=== PATIENT | female | born 1940 | race Caucasian/White ===

== ENCOUNTER 2016-07-17 02:07 | Inpatient (IN) | payer OTHER, MEDICARE ==
[~2016-07-17] VITALS: Ht 157.5 cm; Wt 57.6 kg
[~2016-07-17 02:07] MED LIST: AMOX-CLAV 250-1 EACH PO; ASPIR 8181 MG PO; BENTYL20 M1 PO; CALCIUM ACETAT667 M3 PO; CIPRO500 M1 PO; CRANBERRY425 MG PO; FOLEY CATHETER1 EAC1 UR; K-TAB ER20 MEQ PO; NORVASC 10MG10 MG PO; NYSTATIN100000 UNI PO; OMEPRAZOLE20 M2 PO; PERCOCET 325 MG1 TA2 PO; POTASSIUM CHLO20 ME2 PO; RENVELA800 M1 PO; SLOW-MAG71.5 MG PO; SODIUM BICARBO325 M1 PO; SPIRIVA18 MCG INH; SYMBICORT 80-10.2 GM INH; VANCOCIN HCL125 MG PO; VITAMIN D2000 UNIT PO; VITAMIN D32000 I1 PO; ZOFRAN4 M2 PO
--- NOTE | 2016-07-17 12:43 | Admission Core Measures ---
Admission Meds I reviewed the following Meds: Current Medications Sig/Deena Start time Last Medication Dose Stop Time Status Admin Amlodipine Besylate 10 MG DAILY 07/18 1000 UNVr (Norvasc) Ampicillin Sodium/ 3,000 MG ONCE 07/17 0000 NR Sulbactam Sodium 07/17 2359 (Unasyn) Sodium Chloride 100 ML (Normal Saline 0.9%) Budesonide/ 2 PUF BID 07/17 2200 UNVr Formoterol Fumarate (SYMBICORT) Tiotropium [place] 1 PUF DAILY 07/18 1000 UNVr (Spiriva) Acute Coronary Syndrome Inclusion Criteria ACS Diagnosis No Inpatient Core Measures LDL Reminder: If No, please order W/I first 24hr of stay Congestive Heart Failure Inclusion Criteria CHF Diagnosis No Cerebrovascular accident Inclusion Criteria CVA/TIA Diagnosis No Inpatient Core Measures Bedside Swallow Eval Reminder: If BSE failed, place ST order Antithrombotic Reminder: Order Antithrombotic Medication by end of day 2 Antithrombotic Reminder: Document Reason Antithrombotic Not ordered by end of day 2 AFIB/Flutter Reminder: If Present, add to problem list AFIB/Flutter Reminder: Order Anticoag Medication for pts with AFIB/Flutter Atherosclerosis Reminder: If Present, add to problem list LDL Reminder: If No, please order W/I first 24hr of stay PT Order Reminder: If No, please order Venous thromboembolism Inpatient Core Measures VTE Risk Factors: Age > 40, Surgery VTE Prophylaxis Ordered Inpt Mech & Pharm No Mech VTE prophylaxis d/t No contraindications No VTE Pharm Prophylaxis d/t No contraindications Inclusion Criteria - Per Current guidelines, there needs to be overlap - treatment for the first 5 days of Warfarin therapy. - Parenteral Anticoagulation (IV or SC) needs to be - given along with Warfarin therapy. VTE Diagnosis No VTE Type NONE VTE Confirmed by (Test) NONE Problem List As ranked by this Provider includes Assessment & Plan 1. S/P colostomy takedown HOME MEDS Home Med List Amlodipine (Norvasc 10MG) 10 MG TAB 1 TAB PO DAILY BP (Reported) Aspirin (Ecotrin) 81 MG ECT 1 TAB PO DAILY HEART (Reported) Budesonide/Formoterol Fumarate (Symbicort 80-4.5 Mcg Inhaler) (Unknown Strength) HFA.AER.AD 2 PUFF INH DAILY COPD (Reported) Tiotropium [place] (Spiriva) 18 MCG CAP.W.DEV 1 CAP INH DAILY breathing ( Reported)
--- NOTE | 2016-07-17 12:47 | Patient Discharge Instructions ---
Discharge Instructions General Discharge Information You were seen/treated for: STATUS POST COLOSTOMY You had these procedures: OPEN COLOSTOMY REVERSAL Watch for these problems: INCREASING ABDOMINAL PAIN, NAUSEA, VOMITTING. INABILITY TO MOVE BOWELS OR PASS GAS. FEVER GREATER THAN 101.5 DEGREES. Call Surgeon to remove: Duy Do not soak the wound: Yes Daily wet to dry dressings: No Other wound care: DAILY DRY DRESSING CHANGES Diet Continue normal diet: Yes Recommended Diet: Low Residue Additional DIET Information: ADVANCE TOLERATED Activity Full Activity/No Limits: No Activity Self Limited: Yes Pounds, do NOT lift more than: 10 Acute Coronary Syndrome Inclusion Criteria At DC or during hospital stay patient has or had the following: ACS DIAGNOSIS No Discharge Core Measures Meds if any: Prescribed or Continued at Discharge Meds if any: NOT Prescribed or Continued at Discharge Congestive Heart Failure Inclusion Criteria At DC or during hospital stay patient has or had the following: CHF DIAGNOSIS No Discharge Core Measures Meds if any: Prescribed or Continued at Discharge Meds if any: NOT Prescribed or Continued at Discharge Cerebrovascular accident Inclusion Criteria At DC or during hospital stay patient has or had the following: CVA/TIA Diagnosis No Discharge Core Measures Meds if any: Prescribed or Continued at Discharge Meds if any: NOT Prescribed or Continued at Discharge Venous thromboembolism Inclusion Criteria VTE Diagnosis No VTE Type NONE VTE Confirmed by (Test) NONE Discharge Core Measures - Per Current guidelines, there needs to be overlap - treatment for the first 5 days of Warfarin therapy. - If discharged on Warfarin prior to 5 days of - overlap therapy, the patient will need to be - assessed for post discharge needs including - *Post discharge parental anticoagulation - *Warfarin and/or parental anticoagulation education - *Follow up date to check INR post discharge At least 5 days overlap therapy as Inpatient No Meds if any: Prescribed or Continued at Discharge Note: Overlap Therapy is Warfarin and Anticoagulant Meds if any: NOT Prescribed or Continued at Discharge
[2016-07-17 15:34] VITALS: BP 120/60
--- NOTE | 2016-07-17 16:08 | Cons- Nephrology ---
General Information and HPI Consulting Request Date of Consult: 07/17/16 Requested By: LING CLOUD,LOLA Fowler Reason for Consult: CKD Source of Information: patient, family, old records Exam Limitations: clinical condition History of Present Illness: 76 yr old WF w mul med problems including HTN, lg bowel obstruction requiring colostomy, AAA s/p endovascular repair, & CKD w atrophic R kidney & previous bilat hydro requiring percutaneous L percutaneous nephrostomy & bilateral ureteral stents admit today for elective colostomy closure & reanastomosis. Has known severe, stage 4, CKD w baseline Cr mid 2s & @ baseline on preop labs. Now arouseable but somewhat lethargic post op. Nonoliguric w/o documented hypotension; no NSAIDs, ACEI or ARBs; no documented recent IV contrast exposure. Denies SOB but has post op abd pain. Allergies/Medications Allergies: Coded Allergies: NO KNOWN ALLERGIES (04/10/16) Home Med List: Amlodipine (Norvasc 10MG) 10 MG TAB 1 TAB PO DAILY BP (Reported) Aspirin (Ecotrin) 81 MG ECT 1 TAB PO DAILY HEART (Reported) Budesonide/Formoterol Fumarate (Symbicort 80-4.5 Mcg Inhaler) (Unknown Strength) HFA.AER.AD 2 PUFF INH DAILY COPD (Reported) Reason to Stop at ADM: needs trn neb orders Tiotropium [place] (Spiriva) 18 MCG CAP.W.DEV 1 CAP INH DAILY breathing ( Reported) Reason to Stop at ADM: trc neb orders Current Medications: Current Medications Sig/Deena Start time Last Medication Dose Route Stop Time Status Admin Acetaminophen 1,000 MG Q6P PRN 07/17 1445 AC IV Amlodipine Besylate 10 MG DAILY 07/18 1000 DC PO Amlodipine Besylate 10 MG DAILY 07/18 1000 AC PO Ampicillin Sodium/ 3,000 MG Q6 07/17 1800 AC Sulbactam Sodium IV 07/18 0629 Sodium Chloride 100 ML Ampicillin Sodium/ 3,000 MG ONCE 07/17 0000 DC Sulbactam Sodium IV 07/17 2359 Sodium Chloride 100 ML Budesonide/ 2 PUF BID 07/17 2200 DC Formoterol Fumarate INH Budesonide/ 2 PUF BID 07/17 2200 AC Formoterol Fumarate INH Dexamethasone 4 MG .STK-MED ONE 07/17 0659 DC IM 07/17 0700 Dextrose/Sodium 1,000 ML .Q20H 07/17 1445 AC 07/17 Chloride IV 1552 Fentanyl Citrate 250 MCG .STK-MED ONE 07/17 0658 DC IM 07/17 0659 Heparin Sodium 5,000 UNIT Q8 07/17 1400 AC 07/17 (Porcine) SC 1552 Hydromorphone HCl 2 MG .STK-MED ONE 07/17 0658 DC IM 07/17 0659 Morphine Sulfate 2 MG Q2P PRN 07/17 1445 AC IV Ondansetron HCl 4 MG Q6P PRN 07/17 1445 AC IV Pantoprazole Sodium 40 MG DAILY 07/18 1000 AC IV Promethazine HCl 12.5 MG Q6P PRN 07/17 1445 AC IV 07/24 1244 Tiotropium [place] 1 PUF DAILY 07/18 1000 DC INH Tiotropium [place] 1 PUF DAILY 07/18 1000 AC INH Review of Systems Review of Systems Constitutional: Reports: no symptoms. EENTM: Reports: no symptoms. Cardiovascular: Reports: no symptoms. Respiratory: Reports: no symptoms. GI: Reports: abdominal pain. Genitourinary: Reports: no symptoms. Musculoskeletal: Reports: no symptoms. Skin: Reports: no symptoms. Neurological/Psychological: Reports: no symptoms. Hematologic/Endocrine: Reports: no symptoms. Immunologic/Allergic: Reports: no symptoms. 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 Relation not specified for: FH: diabetes mellitus FH: ME (myocardial infarction) Psychosocial History Where Do You Live? Home Who Do You Live With? spouse Services at Home: Nursing Primary Language: Georgian Smoking Status: Current Everyday Smoker Living Will? yes Power of Pick Out Hand/HCP? unknown Functional Ability ADLs Independent: dressing, eating, toileting, bathing. Ambulation: independent IADLs Independent: shopping, housework, telephone, transportation. Exam & Diagnostic Data Vital Signs and I&O Vital Signs Date Time Temp Pulse Resp B/P Pulse O2 O2 Flow FiO2 Ox Delivery Rate 07/17 1534 96.2 92 16 120/60 99 Nasal 3.0L Cannula 07/17 1415 100 Nasal 3.0L Cannula Intake & Output 07/17 1600 07/17 0400 07/16 1600 07/16 0400 07/15 1600 07/15 0400 Intake Total Output Total Balance Patient 127 lb Weight Physical Exam General Appearance: well developed/nourished, no apparent distress, lethargic Head: atraumatic, normal appearance Eyes: Right: normal appearance. Ears, Nose, Throat: normal ENT inspection Neck: normal inspection Respiratory: no respiratory distress, quiet respiration, lungs clear Cardiovascular: regular rate/rhythm Gastrointestinal: soft, no organomegaly, tenderness Extremities: no edema Neurologic/Psych: no motor/sensory deficits, medical record specialist II-XII nml as tested, easily arouseable Skin: intact, normal color, warm/dry Lymphatic: no anterior cervical yobany Results Pertinent Lab Results: Preop labs Na 139 K 5.0 cl 102 CO2 24 BUN/Cr 36/2.3 eGFR 21 Assessment/Plan Assessment/Recommendations Assessment: 1. CKD: severe, stage 4, due to mult factors, including HTN nephrosclerosis, ? underlying RVDx associated w AAA & atrophic R kidney, & previous obstruction. GFR at baseline preop & will need repeat labs post op as continues on maintenance IV fluids till can take po. Recommendations: 1. continue IV fluids 2. repeat chemistries ths afternoon & in AM 3. lower Unasyn to 1.5 grams IV q12 for renal failure 4. avoid nephrotoxins
--- NOTE | 2016-07-17 16:50 | PN- General Surgery ---
Subjective Subjective: Post-op note: No complaints. Seen by post-operatively for co-management of her pre-existing stg4 ckd. He ordered stat labs, which they are having a hard time drawing at the moment. She denies shortness of breath. No chest pains. No dizziness. Objective Vital Signs and I&Os Vital Signs Date Time Temp Pulse Resp B/P Pulse O2 O2 Flow FiO2 Ox Delivery Rate 07/17 1600 99 Nasal 3.0L Cannula 07/17 1534 96.2 92 16 120/60 99 Nasal 3.0L Cannula 07/17 1415 100 Nasal 3.0L Cannula Intake & Output 07/17 1600 07/17 0800 07/17 0000 07/16 1600 07/16 0800 07/16 0000 Intake Total Output Total Balance Patient 127 lb Weight urine output: 180mls in OR 40mls in PACU 160mls currently (floor) Physical Exam: General - alert & oriented. sleepy. comfortable. no acute distress. Lungs - clear bilaterally. no w/r/r. Cardiac - s1s2. Abdomen - soft. dressings c/d/i. packing in place under dressings. ng tube in place with scant output. - alvarado draining clear, yellow urine. Extremities - warm bilaterally. no c/c/e. calves soft and nontender b/l. venodynes active b/l. Assessment/Plan Assessment/Plan This 76 year old white female with hx stg4 ckd with atrophic R kidney, hx htn, hx large bowel obstruction requiring colostomy, is now POD#0 s/p open colostomy reversal currently npo / ngt / ivf f/u labs ordered by unasyn dose renally adjusted x2 doses protonix - gi ppx hep sc - dvt ppx packing / dressing in place f/u am labs f/u renal consult/recommendations will d/w Core Measures/Miscellaneous Venous Thromboembolism VTE Risk Factors: Age > 40, Surgery VTE Contraindications: No Contraindications VTE Prophylaxis Ordered Inpt Mech & Pharm VTE Diagnosis: No VTE Type: NONE VTE Confirmed by (Test): NONE Beta Tariq Is Beta Tariq a Home Med? No Antibiotics Is Patient on Antibiotics? Yes If Yes: prophylaxis
[2016-07-17 18:32] VITALS: BP 136/76
[2016-07-17 20:23] VITALS: BP 130/69
[2016-07-17 22:13] VITALS: BP 116/61
[2016-07-17 23:40] VITALS: BP 107/76
[2016-07-18 04:30] VITALS: BP 132/70
[2016-07-18 07:14] VITALS: BP 132/58
[2016-07-18 08:13] LABS: ABSOLUTE BASOPHIL COUNT 0 /CUMM (0.0-0.2); ABSOLUTE EOSINOPHIL COUNT 0 /CUMM (0.0-0.7); ABSOLUTE GRANULOCYTE CT 12.2 /CUMM (1.4-6.5); ABSOLUTE LYMPH COUNT 1.2 /CUMM (1.2-3.4); ABSOLUTE MONOCYTE COUNT 0.9 /CUMM (0.10-0.60); BASOPHIL % 0 % (0.0-2.0); EOSINOPHIL % 0.1 % (0-5); GRANULOCYTE % 84.9 % (42.2-75.2); HEMATOCRIT 33.6 % (37-47); MEAN CORPUSCULAR HGB 31.1 PG (27.0-31.0); MEAN CORPUSCULAR HGB CONC 33.7 G/DL (33.0-37.0); MEAN CORPUSCULAR VOLUME 92.1 FL (81.0-99.0); MEAN PLATELET VOLUME 7.9 FL (7.4-10.4); PLATELET COUNT 347 /CUMM (130-400); RBC DISTRIBUTION WIDTH 14.5 % (11.5-14.5); RED BLOOD CELL CT 3.65 /CUMM (4.20-5.40)
--- NOTE | 2016-07-18 09:10 | PN- General Surgery ---
See Addendum Subjective Subjective: POD #1 s/p colostomy reversal. No complaints at present. Denies CP/SOB, N/V, F /C. NGT remains to low wall suction. Voiding via alvarado catheter. Yet to ambulate. No flatus or BM. Objective Vital Signs and I&Os Vital Signs Date Time Temp Pulse Resp B/P Pulse O2 O2 Flow FiO2 Ox Delivery Rate 07/18 0714 98.2 78 18 132/58 94 Room Air 07/18 0430 98.5 85 20 132/70 98 Nasal 2.0L Cannula 07/18 0000 Nasal 2.0L Cannula 07/17 2340 98.5 83 18 107/76 99 Nasal 2.0L Cannula 07/17 2213 98.4 80 20 116/61 98 Nasal 2.0L Cannula 07/17 2023 98.7 86 18 130/69 99 Nasal 3.0L Cannula 07/17 1832 98.6 91 19 136/76 99 Nasal 3.0L Cannula 07/17 1600 99 Nasal 3.0L Cannula 07/17 1534 96.2 92 16 120/60 99 Nasal 3.0L Cannula 07/17 1415 100 Nasal 3.0L Cannula Intake & Output 07/18 1600 07/18 0800 07/18 0000 07/17 1600 07/17 0800 07/17 0000 Intake Total 800 550 Output Total 575 525 Balance 225 25 Intake, IV 800 550 Intake, Oral 0 0 Output, 25 50 Gastric Drainage Output, Urine 550 475 Patient 127 lb Weight Physical Exam: Gen: AAOx3 in NAD Cor: S1+S2+ Lungs: CTA kaiden Abd: soft, NT, ND, scant BS auscultated. Incisional dressing C/D/I. Ext: no edema or calf tenderness to kaiden lower extremities. NGT: -/50/25 Current Medications: Current Medications Sig/Deena Start time Last Medication Dose Route Stop Time Status Admin Acetaminophen 1,000 MG Q6P PRN 07/17 1445 AC 07/18 IV 0643 Amlodipine Besylate 10 MG DAILY 07/18 1000 DC PO Amlodipine Besylate 10 MG DAILY 07/18 1000 AC PO Ampicillin Sodium/ 1,500 MG Q12 07/17 2200 AC 07/17 Sulbactam Sodium IV 07/18 1029 2112 Sodium Chloride 100 ML Ampicillin Sodium/ 3,000 MG Q6 07/17 1800 CAN Sulbactam Sodium IV 07/18 0629 Sodium Chloride 100 ML Ampicillin Sodium/ 3,000 MG ONCE 07/17 0000 DC Sulbactam Sodium IV 07/17 2359 Sodium Chloride 100 ML Budesonide/ 2 PUF BID 07/17 2200 DC Formoterol Fumarate INH Budesonide/ 2 PUF BID 07/17 2200 AC 07/17 Formoterol Fumarate INH 2117 Dextrose/Sodium 1,000 ML Q13H 07/17 1700 AC 07/18 Chloride IV 0639 Dextrose/Sodium 1,000 ML .Q20H 07/17 1445 DC 07/17 Chloride IV 1552 Heparin Sodium 5,000 UNIT Q8 07/17 1400 AC 07/18 (Porcine) SC 0639 Morphine Sulfate 2 MG Q2P PRN 07/17 1445 AC IV Ondansetron HCl 4 MG Q6P PRN 07/17 1445 AC IV Pantoprazole Sodium 40 MG DAILY 07/18 1000 AC IV Promethazine HCl 12.5 MG Q6P PRN 07/17 1445 AC IV 07/24 1244 Tiotropium [place] 1 PUF DAILY 07/18 1000 DC INH Tiotropium [place] 1 PUF DAILY 07/18 1000 AC INH Results Last 48 Hours of Labs: Laboratory Tests 07/18 07/17 07/17 0633 1919 1919 Chemistry Sodium (137 - 145 mmol/L) 140 136 L Potassium (3.5 - 5.1 mmol/L) 5.1 5.2 H Chloride (98 - 107 mmol/L) 104 99 Carbon Dioxide (22 - 30 mmol/L) 21 L 21 L Anion Gap (5 - 16) 15 16 BUN (7 - 17 mg/dL) 38 H 39 H Creatinine (0.5 - 1.0 mg/dL) 2.3 H 2.2 H Estimated GFR (>60 ml/min) 21 L 22 L BUN/Creatinine Ratio (7 - 25 %) 16.5 17.7 Calcium (8.4 - 10.2 mg/dL) 8.9 Phosphorus (2.5 - 4.5 mg/dL) 5.3 H Magnesium (1.6 - 2.3 mg/dL) 1.7 Hematology CBC w Diff Pending WBC Pending RBC Pending Hgb Pending Hct Pending MCV Pending MCH Pending RDW Pending Plt Count Pending MPV Pending Gran % Pending Lymphocytes % Pending Monocytes % Pending Eosinophils % Pending Basophils % Pending Absolute Granulocytes Pending Absolute Lymphocytes Pending Absolute Monocytes Pending Absolute Eosinophils Pending Absolute Basophils Pending PUBS MCHC Pending Assessment/Plan Assessment/Plan A: POD #1 s/p open colostomy reversal. No flatus or BM. AVSS. NGT in place. Plan: ? removal of alvarado today. ? removal of NGT today. OOB and ambulate as tolerated. Appreciate nephrology recommendations. F/U am labwork. Will discuss plan with Dr. Dumont. Core Measures/Miscellaneous Venous Thromboembolism VTE Risk Factors: Age > 40, Surgery VTE Contraindications: No Contraindications VTE Prophylaxis Ordered Inpt Mech & Pharm VTE Diagnosis: No VTE Type: NONE VTE Confirmed by (Test): NONE Beta Tariq Is Beta Tariq a Home Med? No Antibiotics Is Patient on Antibiotics? Yes If Yes: prophylaxis
[2016-07-18 09:33] LABS: WHITE BLOOD CELL COUNT 14.4 /CUMM (4.8-10.8)
[2016-07-18 16:44] VITALS: BP 140/66
[2016-07-18 23:40] VITALS: BP 131/68
[2016-07-19 04:56] VITALS: BP 141/71
[2016-07-19 08:00] LABS: ABSOLUTE BASOPHIL COUNT 0.1 /CUMM (0.0-0.2); ABSOLUTE EOSINOPHIL COUNT 0 /CUMM (0.0-0.7); ABSOLUTE GRANULOCYTE CT 11.8 /CUMM (1.4-6.5); ABSOLUTE LYMPH COUNT 2.2 /CUMM (1.2-3.4); ABSOLUTE MONOCYTE COUNT 0.7 /CUMM (0.10-0.60); BASOPHIL % 0.4 % (0.0-2.0); EOSINOPHIL % 0.1 % (0-5); HEMATOCRIT 34.3 % (37-47); MEAN CORPUSCULAR HGB 31.1 PG (27.0-31.0); MEAN CORPUSCULAR HGB CONC 33.4 G/DL (33.0-37.0); MEAN CORPUSCULAR VOLUME 93.1 FL (81.0-99.0); PLATELET COUNT 365 /CUMM (130-400); RBC DISTRIBUTION WIDTH 15.1 % (11.5-14.5); RED BLOOD CELL CT 3.69 /CUMM (4.20-5.40); WHITE BLOOD CELL COUNT 14.8 /CUMM (4.8-10.8)
--- NOTE | 2016-07-19 08:38 | PN- General Surgery ---
See Addendum Subjective Subjective: No acute overnight events reported. Denies nausea and vomitting. Acknowledges christine-incisional discomfort. Denies chest pain, shortness of breath and difficulty breathing. Denies flatus. Objective Vital Signs and I&Os Vital Signs Date Time Temp Pulse Resp B/P Pulse O2 O2 Flow FiO2 Ox Delivery Rate 07/19 0456 97.9 96 18 141/71 93 Room Air 07/18 2340 97.8 89 20 131/68 93 Room Air 07/18 1644 98.2 100 20 140/66 92 07/18 0935 78 132/58 Intake & Output 07/19 1600 07/19 0800 07/19 0000 07/18 1600 07/18 0800 07/18 0000 Intake Total 600 850 600 800 550 Output Total 500 350 305 575 525 Balance 100 500 295 225 25 Intake, IV 600 850 600 800 550 Intake, Oral 0 0 0 0 Number 0 Bowel Movements Output, Drainage Output, 0 25 25 50 Gastric Drainage Output, Urine 500 350 280 550 475 Physical Exam: General: Alert and oriented x3, no acute distress Cardiac: RRR, s1s2 Pulmonary: CTA bilaterally Abdomen: Soft, non-distended, christine-incisional tenderness appropriate. No bowel sounds Extremities: Moves all extremities, distal sensation intact. DP pulses palp. Skin warm well perfused. Bilateral calves soft and non-tender Surgical site: Dressing taken down. Midline incision skin edges well approximated, yennifer in place, no surrounding erythema, no drainage. Stoma site: No new drainage noted, only dried serosanguinous drainage on original dressing. Packing in place, inched out slightly (<1cm) Assessment/Plan Assessment/Plan This is a 76 year old female, pod 2, s/p colostomy reversal. PMH sig for stage 4 kidney disease -F/U am labs, monitor electrolytes, BUN and Cr per nephrology -Continue current pain regimen -Continue NPO -OOB to recliner today -Continue iv fluids -Monitor I/O, voiding spontaneously -Will d/w Dr. Dumont Core Measures/Miscellaneous Venous Thromboembolism VTE Risk Factors: Age > 40, Surgery VTE Contraindications: No Contraindications VTE Prophylaxis Ordered Inpt Mech & Pharm VTE Diagnosis: No VTE Type: NONE VTE Confirmed by (Test): NONE Beta Tariq Is Beta Tariq a Home Med? No Antibiotics Is Patient on Antibiotics? Yes If Yes: prophylaxis
[2016-07-19 09:28] VITALS: BP 144/70
--- NOTE | 2016-07-19 14:00 | NUR ---
REMOVED NG TUBE. PT TOLERATED PROCEDURE WELL.
--- NOTE | 2016-07-19 15:30 | NUR ---
PT DESATTED TO 84% ON ROOM AIR. O2 PLACED AT 5L, O2 SAT STILL AT 87%. SURG RADHA RAMOS INFORMED AND AT BEDSIDE. PT WAS ASYMPTOMATIC, NO SOB, HEART RATE 89. RESP EVAL WAS ORDERED.
[2016-07-19 16:11] VITALS: BP 135/72
--- NOTE | 2016-07-19 19:53 | RADIOLOGY REPORT ---
EXAMINATION: XR PORTABLE CHEST CLINICAL INFORMATION: Increased oxygen demand. COMPARISON: Chest radiography 07/13/2016. TECHNIQUE: Portable view of the chest was obtained. FINDINGS: Slight asymmetric elevation of the left hemidiaphragm. Adjacent left basilar opacification. No other parenchymal consolidation. No pulmonary edema or pneumothorax. No large pleural effusion. Mediastinal contours are unchanged. Aortic stent graft. Right-sided ureteral stent. No acute osseous abnormalities. IMPRESSION: New left basilar opacification, consider atelectasis, aspiration, or pneumonia.
[2016-07-19 23:18] VITALS: BP 124/58
--- NOTE | 2016-07-20 07:42 | PN- General Surgery ---
See Addendum Subjective Subjective: Patient is POD #3 s/p open colostomy reversal. Increase in oxygen requirement noted overnight now even further increased this morning. Patient states she is using her incentive spirometer. CXR yesterday concerning for atelectasis vs pneumonia. Patient denies CP/SOB, N/V, F/C. Yet to pass flatus or have BM. Ambulating with assistance. Objective Vital Signs and I&Os Vital Signs Date Time Temp Pulse Resp B/P Pulse O2 O2 Flow FiO2 Ox Delivery Rate 07/20 0000 94 Nasal 5.0L Cannula 07/19 2318 97.8 81 20 124/58 94 07/19 1748 Nasal 6.0L Cannula 07/19 1611 98.1 88 20 135/72 87 07/19 1600 94 Nasal 5.0L Cannula 07/19 1033 144/70 07/19 0928 98.4 91 20 144/70 91 Room Air Intake & Output 07/20 1600 07/20 0800 07/20 0000 07/19 1600 07/19 0800 07/19 0000 Intake Total 600 300 630 600 850 Output Total 800 300 550 500 350 Balance -200 0 80 100 500 Intake, IV 600 300 600 600 850 Intake, Oral 0 0 30 0 Number 0 0 Bowel Movements Output, Drainage Output, 0 Gastric Drainage Output, Urine 800 300 550 500 350 Physical Exam: Gen: AAOx3 in NAD Cor: S1+S2+ Lungs: CTA kaiden Abd: soft, appropriately tender to palpation, ND, scant BS auscultated. Incision at midline C/D/I with yennifer. No surrounding erythema or drainage noted. Prior colostomy site with packing with creamy drainage noted after backing out packing. No surrounding erythema noted. Ext: no edema or calf tenderness to kaiden lower extremities. Current Medications: Current Medications Sig/Deena Start time Last Medication Dose Route Stop Time Status Admin Acetaminophen 1,000 MG .STK-MED ONE 07/19 2301 DC IV 07/19 2302 Acetaminophen 1,000 MG Q6P PRN 07/17 1445 AC 07/20 IV 0418 Albuterol Sulfate 3 ML BID 07/19 2199 AC 07/19 INH 1700 Amlodipine Besylate 10 MG DAILY 07/18 1000 AC 07/19 PO 1033 Budesonide/ 2 PUF BID 07/17 Formoterol Fumarate INH 2146 Dextrose/Sodium 1,000 ML Q13H 07/17 1700 AC 07/20 Chloride IV 0418 Heparin Sodium 5,000 UNIT Q8 07/17 1400 AC 07/20 (Porcine) SC 0513 Morphine Sulfate 2 MG Q2P PRN 07/17 1445 AC 07/19 IV 1308 Ondansetron HCl 4 MG Q6P PRN 07/17 1445 AC IV Pantoprazole Sodium 40 MG DAILY 07/18 1000 AC 07/19 IV 1033 Promethazine HCl 12.5 MG Q6P PRN 07/17 1445 AC IV 07/24 1244 Tiotropium [place] 1 PUF DAILY 07/18 1000 AC 07/19 INH 1032 Results Last 48 Hours of Labs: Laboratory Tests 07/19 07/19 1020 0635 Chemistry Sodium (137 - 145 mmol/L) 144 Potassium (3.5 - 5.1 mmol/L) 4.4 Chloride (98 - 107 mmol/L) 113 H Carbon Dioxide (22 - 30 mmol/L) 23 Anion Gap (5 - 16) 8 BUN (7 - 17 mg/dL) 29 H Creatinine (0.5 - 1.0 mg/dL) 2.2 H Estimated GFR (>60 ml/min) 22 L BUN/Creatinine Ratio (7 - 25 %) 13.2 Phosphorus (2.5 - 4.5 mg/dL) 3.0 Magnesium (1.6 - 2.3 mg/dL) 1.8 Hematology CBC w Diff NO MAN DIFF REQ WBC (4.8 - 10.8 /CUMM) 14.8 H RBC (4.20 - 5.40 /CUMM) 3.69 L Hgb (12.0 - 16.0 G/DL) 11.5 L Hct (37 - 47 %) 34.3 L MCV (81.0 - 99.0 FL) 93.1 MCH (27.0 - 31.0 PG) 31.1 H RDW (11.5 - 14.5 %) 15.1 H Plt Count (130 - 400 /CUMM) 365 MPV (7.4 - 10.4 FL) 8.0 Gran % (42.2 - 75.2 %) 80.0 H Lymphocytes % (20.5 - 51.1 %) 14.6 L Monocytes % (1.7 - 9.3 %) 4.9 Eosinophils % (0 - 5 %) 0.1 Basophils % (0.0 - 2.0 %) 0.4 Absolute Granulocytes (1.4 - 6.5 /CUMM) 11.8 H Absolute Lymphocytes (1.2 - 3.4 /CUMM) 2.2 Absolute Monocytes (0.10 - 0.60 /CUMM) 0.7 H Absolute Eosinophils (0.0 - 0.7 /CUMM) 0 Absolute Basophils (0.0 - 0.2 /CUMM) 0.1 PUBS MCHC (33.0 - 37.0 G/DL) 33.4 Assessment/Plan Assessment/Plan A: POD #3 s/p open colostomy reversal with hospital course complicated by post operative hypoxia (read as 80% on 8L). Unclear if COPD exacerbation vs pneumonia vs atelectasis. Plan: Calling respiratory for nebulized therapy. Stat CXR, ABG ordered. Will order chest PT for percussion. Will likely need pulmonology consultation for evaluation. RN to continue to teach incentive spirometer. Await bowel function. Patient to remain NPO until flatus. Continue heparin sq for DVT ppx. PT eval for disposition recommendations. Will discuss plan with Dr. Dumont. Core Measures/Miscellaneous Venous Thromboembolism VTE Risk Factors: Age > 40, Surgery VTE Contraindications: No Contraindications VTE Prophylaxis Ordered Inpt Mech & Pharm VTE Diagnosis: No VTE Type: NONE VTE Confirmed by (Test): NONE Beta Tariq Is Beta Tariq a Home Med? No Antibiotics Is Patient on Antibiotics? Yes If Yes: prophylaxis
--- NOTE | 2016-07-20 07:45 | NUR ---
CALLED INTO ROOM BY RADHA WELLS; RADHA CHECKING PATIENT'S O2 SAT; PATIENT IS ON 5L HUMIDIFIED O2 VIA NASAL CANNULA SAO2 79-85%; PATIENT A/OX3; PATIENT DENIES SHORTNESS OF BREATH; RESPIRATORY CALLED AND JOSE LUIS RT AT BEDSIDE; NEBULIZER GIVEN TO PATIENT; PORT CXR ORDERED AND COMPLETED; ABG DRAWN; O2 SAT IMPROVED TO 100% ON 55% VM; IST AND ACAPELLA TEACHING DONE BY RT JOSE LUIS; RT JOSE LUIS REMAINS AT BEDSIDE TO TITRATE O2;
--- NOTE | 2016-07-20 08:57 | RADIOLOGY REPORT ---
EXAMINATION: XR PORTABLE CHEST CLINICAL INFORMATION: Evaluate for congestive heart failure. COMPARISON: 07/19/2016 TECHNIQUE: Portable view of the chest was obtained. FINDINGS: Cardiac and mediastinal silhouette is stable, rotated positioning. Persistent left basilar retrocardiac opacification. Persistent elevation of the left hemidiaphragm. No focal consolidation otherwise seen. No large effusion. No pulmonary edema or pneumothorax. There is tubing projecting over the chest. IMPRESSION: Persistent left basilar opacification, consider atelectasis, pneumonia, aspiration.
--- NOTE | 2016-07-20 09:00 | NUR ---
PATIENT HAD VERY PRODUCTIVE COUGH AFTER WORKING WITH ACAPELLA AND IST; LRC SENT BY JOSE LUIS RT; PATIENT NOW 100% ON 6L VIA HUMIDIFIED O2 NC; JOSE LUIS RT AT BEDSIDE CONTINUING TO TITRATE PATIENT;
[2016-07-20 09:44] VITALS: BP 128/60
--- NOTE | 2016-07-20 10:00 | NUR ---
PATIENT NOW ON 4L HUMIDIFIED O2 VIA NC SAO2 96%; WILL CONTINUE TO MONITOR AT TITRATE;
--- NOTE | 2016-07-20 10:27 | NUR ---
DR REYNAGA AT BEDSIDE
--- NOTE | 2016-07-20 12:23 | PN- Nephrology ---
Assessment/Plan Assessment: CKD - 2/2 HTN and renovascular disease (atrophic kidney). Has been stable post- op. Volume status - Euvolemic based on chest x-ray. Would be cautious with IVF. Suggestion: -Cautious administration of IVF - would lower rate if s/s of pulm edema Will sign off. Pt has next appt with Dr. Vyas on 12/02/16. Please reconsult with ?'s Subjective Subjective: Creatinine 2.2 yesterday Now POD #3 s/p colostomy reversal Still no gas or BM On 75cc/hr of D5NS No pulm edema noted on chest x-ray Objective Vital Signs and I&Os Vital Signs Date Time Temp Pulse Resp B/P Pulse O2 O2 Flow FiO2 Ox Delivery Rate 07/20 1205 96 Nasal 3.0L Cannula 07/20 1000 102 128/60 07/20 0952 97 Nasal 4.0L Cannula 07/20 0944 98.3 102 18 128/60 99 Nasal 6.0L Cannula 07/20 0805 89 Nasal 8L Cannula 07/20 0000 94 Nasal 5.0L Cannula 07/19 2318 97.8 81 20 124/58 94 07/19 1748 Nasal 6.0L Cannula 07/19 1611 98.1 88 20 135/72 87 07/19 1600 94 Nasal 5.0L Cannula Intake & Output 07/20 1600 07/20 0400 07/19 1600 07/19 0400 07/18 1600 07/18 0400 Intake Total 6561 181 5934 850 1400 550 Output Total 249 682 7202 350 880 525 Balance 300 -400 180 500 520 25 Intake, IV 4344 270 2563 850 1400 550 Intake, Oral 0 0 30 0 0 0 Number 0 0 0 Bowel Movements Output, Drainage Output, 0 50 50 Gastric Drainage Output, Urine 986 791 8016 350 830 475 Patient 127 lb Weight Physical Exam: Gen - OK appearing HEENT - supple, JVP not up CV - RRR Chest - R basilar crackles Abd - soft, no significant tenderness, no bowel sounds Ext - no edema Neuro - AOX3 Current Medications: Current Medications Sig/Deena Start time Last Medication Dose Route Stop Time Status Admin Acetaminophen 1,000 MG .STK-MED ONE 07/20 0415 DC IV 07/20 0416 Acetaminophen 1,000 MG .STK-MED ONE 07/19 2301 DC IV 07/19 2302 Acetaminophen 1,000 MG Q6P PRN 07/17 1445 AC 07/20 IV 1213 Albuterol Sulfate 3 ML EVERY 4 HRS/AWAKE 07/20 1200 AC 07/20 INH 1126 Albuterol Sulfate 3 ML BID 07/19 2200 DC 07/19 INH 1700 Amlodipine Besylate 10 MG DAILY 07/18 1000 AC 07/20 PO 1000 Budesonide/ 2 PUF BID 07/17 2200 AC 07/20 Formoterol Fumarate INH 1001 Dextrose/Sodium 1,000 ML Q13H 07/17 1700 AC 07/20 Chloride IV 1336 Furosemide 40 MG ONCE ONE 07/20 1445 DC IV 07/20 1446 Heparin Sodium 5,000 UNIT Q8 07/17 1400 AC 07/20 (Porcine) SC 1336 Ipratropium Jerome 2.5 ML EVERY 4 HRS/AWAKE 07/20 1200 AC 07/20 INH 1126 Morphine Sulfate 2 MG Q2P PRN 07/17 1445 AC 07/19 IV 1308 Ondansetron HCl 4 MG Q6P PRN 07/17 1445 AC IV Pantoprazole Sodium 40 MG DAILY 07/18 1000 AC 07/20 IV 1000 Promethazine HCl 12.5 MG Q6P PRN 07/17 1445 AC IV 07/24 1244 Tiotropium Jerome 1 PUF DAILY 07/18 1000 DC 07/20 INH 1001 Results Pertinent Lab Results: Laboratory Tests 07/20 07/19 07/19 0845 1020 0635 Blood Gas pH (7.35 - 7.45 PH) 7.35 pCO2 (35 - 45 TORR) 36 pO2 (80 - 100 TORR) 62 L HCO3 (21 - 28 MEQ/L) 20 L ABG O2 Sat (Measured) (>96.0 %) 92.0 L Carboxyhemoglobin (1.5 - 5.0 %) 0.3 L O2 Concentration % 8L O2 Delivery Method 94 Chemistry Sodium (137 - 145 mmol/L) 144 Potassium (3.5 - 5.1 mmol/L) 4.4 Chloride (98 - 107 mmol/L) 113 H Carbon Dioxide (22 - 30 mmol/L) 23 Anion Gap (5 - 16) 8 BUN (7 - 17 mg/dL) 29 H Creatinine (0.5 - 1.0 mg/dL) 2.2 H Estimated GFR (>60 ml/min) 22 L BUN/Creatinine Ratio (7 - 25 %) 13.2 Phosphorus (2.5 - 4.5 mg/dL) 3.0 Magnesium (1.6 - 2.3 mg/dL) 1.8 Hematology CBC w Diff NO MAN DIFF REQ WBC (4.8 - 10.8 /CUMM) 14.8 H RBC (4.20 - 5.40 /CUMM) 3.69 L Hgb (12.0 - 16.0 G/DL) 11.5 L Hct (37 - 47 %) 34.3 L MCV (81.0 - 99.0 FL) 93.1 MCH (27.0 - 31.0 PG) 31.1 H RDW (11.5 - 14.5 %) 15.1 H Plt Count (130 - 400 /CUMM) 365 MPV (7.4 - 10.4 FL) 8.0 Gran % (42.2 - 75.2 %) 80.0 H Lymphocytes % (20.5 - 51.1 %) 14.6 L Monocytes % (1.7 - 9.3 %) 4.9 Eosinophils % (0 - 5 %) 0.1 Basophils % (0.0 - 2.0 %) 0.4 Absolute Granulocytes (1.4 - 6.5 /CUMM) 11.8 H Absolute Lymphocytes (1.2 - 3.4 /CUMM) 2.2 Absolute Monocytes (0.10 - 0.60 /CUMM) 0.7 H Absolute Eosinophils (0.0 - 0.7 /CUMM) 0 Absolute Basophils (0.0 - 0.2 /CUMM) 0.1 PUBS MCHC (33.0 - 37.0 G/DL) 33.4 Miscellaneous Phlebotomy Draw Site LEFT RADIAL 07/18 07/17 07/17 9705 1912 191 Chemistry Sodium (137 - 145 mmol/L) 140 136 L Potassium (3.5 - 5.1 mmol/L) 5.1 5.2 H Chloride (98 - 107 mmol/L) 104 99 Carbon Dioxide (22 - 30 mmol/L) 21 L 21 L Anion Gap (5 - 16) 15 16 BUN (7 - 17 mg/dL) 38 H 39 H Creatinine (0.5 - 1.0 mg/dL) 2.3 H 2.2 H Estimated GFR (>60 ml/min) 21 L 22 L BUN/Creatinine Ratio (7 - 25 %) 16.5 17.7 Calcium (8.4 - 10.2 mg/dL) 8.9 Phosphorus (2.5 - 4.5 mg/dL) 5.3 H Magnesium (1.6 - 2.3 mg/dL) 1.7 Hematology CBC w Diff NO MAN DIFF REQ WBC (4.8 - 10.8 /CUMM) 14.4 H RBC (4.20 - 5.40 /CUMM) 3.65 L Hgb (12.0 - 16.0 G/DL) 11.3 L Hct (37 - 47 %) 33.6 L MCV (81.0 - 99.0 FL) 92.1 MCH (27.0 - 31.0 PG) 31.1 H RDW (11.5 - 14.5 %) 14.5 Plt Count (130 - 400 /CUMM) 347 MPV (7.4 - 10.4 FL) 7.9 Gran % (42.2 - 75.2 %) 84.9 H Lymphocytes % (20.5 - 51.1 %) 8.6 L Monocytes % (1.7 - 9.3 %) 6.4 Eosinophils % (0 - 5 %) 0.1 Basophils % (0.0 - 2.0 %) 0 L Absolute Granulocytes (1.4 - 6.5 /CUMM) 12.2 H Absolute Lymphocytes (1.2 - 3.4 /CUMM) 1.2 Absolute Monocytes (0.10 - 0.60 /CUMM) 0.9 H Absolute Eosinophils (0.0 - 0.7 /CUMM) 0 Absolute Basophils (0.0 - 0.2 /CUMM) 0 PUBS MCHC (33.0 - 37.0 G/DL) 33.7 Imaging/Other Studies: EXAMINATION: XR PORTABLE CHEST CLINICAL INFORMATION: Evaluate for congestive heart failure. COMPARISON: 07/19/2016 TECHNIQUE: Portable view of the chest was obtained. FINDINGS: Cardiac and mediastinal silhouette is stable, rotated positioning. Persistent left basilar retrocardiac opacification. Persistent elevation of the left hemidiaphragm. No focal consolidation otherwise seen. No large effusion. No pulmonary edema or pneumothorax. There is tubing projecting over the chest. IMPRESSION: Persistent left basilar opacification, consider atelectasis, pneumonia, aspiration.
--- NOTE | 2016-07-20 12:47 | Cons- Pulmonary ---
General Information and HPI Consulting Request Date of Consult: 07/20/16 Requested By: surg team History of Present Illness: 76 yr old WF w mul med problems including HTN, lg bowel obstruction requiring colostomy, AAA s/p endovascular repair, & CKD w atrophic R kidney & previous bilat hydro requiring percutaneous L percutaneous nephrostomy & bilateral ureteral stents was admitted for elective colostomy closure & reanastomosis. Subsequently she was noted to have significant hypoxemia. Hence this consult. Patient does have history of smoking and the recently she had increased her smoking. A chest x-ray showed atelectasis versus pneumonia hence this consult. No leg swelling no history suggestive pulmonary embolism in the past few days. No significant tachycardia and patient has been on subcutaneous heparin for the past few days. No nausea vomiting no diarrhea. She does have chronic kidney disease and has had slightly reduced urine output. She has had more than 41-[id number] smoking history unfortunately continues to actively smoke. Previous spirometry and full pulmonary function tests was suggestive of significant obstructive lung disease. Past history was extensively reviewed. She has peripheral vascular disease, anemia of chronic kidney disease and hyperparathyroidism. Review of symptoms obtained unremarkable otherwise as noted above SIGNIFICANT DATA Chest x-ray reviewed shows persistent left basilar opacification consistent with atelectasis versus pneumonia Renal ultrasound done in May showed right kidney was atrophic Blood work reviewed creatinine stable at 2.2 white count 14.8 hemoglobin 11.5 platelets 365. ABG reviewed 735/36/62. Allergies/Medications Allergies: Coded Allergies: NO KNOWN ALLERGIES (04/10/16) Home Med List: Amlodipine (Norvasc 10MG) 10 MG TAB 1 TAB PO DAILY BP (Reported) Aspirin (Ecotrin) 81 MG ECT 1 TAB PO DAILY HEART (Reported) Budesonide/Formoterol Fumarate (Symbicort 80-4.5 Mcg Inhaler) (Unknown Strength) HFA.AER.AD 2 PUFF INH DAILY COPD (Reported) Reason to Stop at ADM: needs trn neb orders Tiotropium [place] (Spiriva) 18 MCG CAP.W.DEV 1 CAP INH DAILY breathing ( Reported) Reason to Stop at ADM: trc neb orders Review of Systems Review of Systems Constitutional: Reports: see HPI. Past History Medical History Blood Transfusion Hx: No Neurological: NONE EENT: NONE Cardiovascular: hypertension, hyperlipidemia, HTN, AAA, DYSLIPEDEMIA Respiratory: COPD Gastrointestinal: constipation, C diff Hepatic: NONE Renal: CHRONIC RENAL FAILURE atrophic right kidney Adrenal adenoma Musculoskeletal: NONE Psychiatric: NONE Endocrine: VIT D DEFICIENCY Blood Disorders: NONE Cancer(s): NONE IDENTIFICATION OFFICER/Reproductive: POST MENOPAUSAL Frequent UTI Surgical History Surgical History: ADRENAL TUMOR REMOVAL COLECTOMY W/COLOSTOMY status post AAA repair Family History Relations & Conditions If Any: FATHER, . Relation not specified for: FH: diabetes mellitus FH: ND (myocardial infarction) Psychosocial History Where Do You Live? Home Who Do You Live With? spouse Services at Home: Nursing Primary Language: Mongolian Smoking Status: Current Everyday Smoker Living Will? yes Power of Tube Room Cashier/HCP? unknown Functional Ability ADLs Independent: dressing, eating, toileting, bathing. Ambulation: independent IADLs Independent: shopping, housework, telephone, transportation. Exam & Diagnostic Data Last 24 Hrs of Vital Signs/I&O Vital Signs Date Time Temp Pulse Resp B/P Pulse O2 O2 Flow FiO2 Ox Delivery Rate 07/20 1205 96 Nasal 3.0L Cannula 07/20 1000 102 128/60 07/20 0952 97 Nasal 4.0L Cannula 07/20 0944 98.3 102 18 128/60 99 Nasal 6.0L Cannula 07/20 0805 89 Nasal 8L Cannula 07/20 0000 94 Nasal 5.0L Cannula 07/19 2318 97.8 81 20 124/58 94 07/19 1748 Nasal 6.0L Cannula 07/19 1611 98.1 88 20 135/72 87 07/19 1600 94 Nasal 5.0L Cannula Intake & Output 07/20 1600 07/20 0800 07/20 0000 Intake Total 600 300 Output Total 300 1000 300 Balance -300 -400 0 Intake, IV 600 300 Intake, Oral 0 0 Number 0 0 Bowel Movements Output, Urine 300 1000 300 Last 48 Hrs of Labs/Mike: Laboratory Tests 07/20/16 0845: pH 7.35, pCO2 36, pO2 62 L, HCO3 20 L, ABG O2 Sat (Measured) 92.0 L, Carboxyhemoglobin 0.3 L, O2 Concentration % 8L, O2 Delivery Method 94, Phlebotomy Draw Site LEFT RADIAL 07/19/16 1020: Anion Gap 8, Estimated GFR 22 L, BUN/Creatinine Ratio 13.2, Phosphorus 3.0, Magnesium 1.8 07/19/16 0635: CBC w Diff NO MAN DIFF REQ, RBC 3.69 L, MCV 93.1, MCH 31.1 H, RDW 15.1 H, MPV 8.0, Gran % 80.0 H, Lymphocytes % 14.6 L, Monocytes % 4.9, Eosinophils % 0.1, Basophils % 0.4, Absolute Granulocytes 11.8 H, Absolute Lymphocytes 2.2, Absolute Monocytes 0.7 H, Absolute Eosinophils 0, Absolute Basophils 0.1, PUBS MCHC 33.4 Assessment/Plan Impression/Plan: Gen: AAOx3 in NAD Cor: S1+S2+ Lungs: mild crackles both sides with no sig wheezing Abd: soft, appropriately tender to palpation, ND, scant BS auscultated. Incision at midline C/D/I with yennifer. No surrounding erythema or drainage noted. Prior colostomy site with packing with creamy drainage noted after backing out packing. No surrounding erythema noted. Ext: no edema or calf tenderness to kaiden lower extremities. IMPRESSION This is a lady with history of COPD still smokes 1 pack a day with moderate obstructive lung disease with ongoing bronchospasm, hypertension, hyperlipidemia , vitamin D deficiency, significant peripheral vascular disease in the past with status post AAA stent placed in 2014, previous adrenal adenoma with status post resection apparently was benign, chronic renal insufficiency with atrophic right kidney, now * S/p open colostomy reversal with hospital course complicated by post operative hypoxia, now improving with incentive spirometry- mostly related to chronic lung disease with sig atx in the left lower lobe, no clear evidence of pna as she has no fever or any purulent sputum. Has mild fluid overload aswell with bilteral crackles. Unlikely PE as she is on heparin and no evidence of pedal edema * SIg copd with no evidence of exacerbation * CKD with mild fluid overload * LLL atx with hypoxia * PVD, CKD, Hyperpara, Chronic anemia * Ongoing smoking REC * IV lasix one dose today 40 mg * Incentive spirometry * Cont nebs * Lower ext dopplers * Cxr in am * If any fever or chills or sputum then will start Iv unasyn and hold abx and steroids for now * DUOneb tid atc, Hold spiriva for now till dc cont nebs * IF hypoxia persists will consider vq scan after the above intervention is done * Smoking cessation counselling done extensively with the patient Consult Acknowledgment - Thank you for your consult request.
[2016-07-20 16:04] VITALS: BP 136/82
--- NOTE | 2016-07-20 16:46 | ULTRASOUND REPORT ---
EXAMINATION: US TRIPLEX LOWER EXTREMITY, BILATERAL CLINICAL INFORMATION: Hypoxia COMPARISON: None. TECHNIQUE: Color-flow triplex imaging with spectral analysis and compression Doppler were performed on the bilateral lower extremities. FINDINGS: Respiratory variation, normal compression and augmented flow are noted throughout the bilateral lower extremities. The visualized common femoral vein, femoral vein, profunda femoral vein, popliteal vein and mid calf peroneal and posterior tibial venous segments show no evidence of deep venous thrombosis. There is no Mccarthy's cyst. IMPRESSION: Normal triplex scan without evidence of deep venous thrombosis involving the bilateral lower extremities.
--- NOTE | 2016-07-20 17:10 | Operative Report ---
Operative/Inv Procedure Report Surgery Date: 07/17/16 Name of Procedure: Colostomy reversal Pre-Operative Diagnosis: Colostomy, after Cannon's for large bowel obstruction Post-Operative Diagnosis: Same Estimated Blood Loss: scant Surgeon/Store Stocker: LING CLOUD,LOLA GARCIA Anesthesia: general endotracheal tube Operative/Procedure Note Note: Patient was positioned supine, after induction of general anesthesia, a tap block was performed, IV antibiotics were given the colostomy was sutured shut and then the abdomen was clipped prepped and draped from the nipples to the groin in the usual sterile fashion. A midline incision was made with a 10 blade reopening the previous starting 2 cm above the umbilicus and ending just above the pubis. The incision was deepened with cautery through Amy's fascia clearing off the linea alba first then carefully incising it avoiding injury to the underlying bowel, and the small bowel was quite adhesed we eventually were able to run its entire length after extensive lysis of adhesions mostly to the anterior abdominal wall and a few interloop. The Bookwalter was set up to retract the small bowel and the cecum upwards exposing the pelvis and the rectal stump which was narrowed at the staple line. We inserted a sizer per rectum to get a sense of the trajectory and laxity and decided that we were going to be able to go ahead. Next the colostomy was mobilized from the abdominal wall from both sides initially starting at the skin which was incised with cautery care was taken to not injure the mesentery of the colon. Once mobilized and some additional mobilization along the white line of Toldt we could see that this could easily reach the rectal stump without tension. Then the colostomy and was engaged in the pursestring device the distal tip excised and after sizing a 31 EEA anvil was tied into the end. The circulation assistant below the EEA stapler was inserted the spike was advanced and then mated to the anvil and the stapler was fired. It was disengaged there were 2 complete donuts. Next using the proctoscope we gently checked several times with air under submerged anastomosis , it was airtight. The peritoneum especially the pelvis was irrigated and checked for hemostasis. The position of the NG tube was checked and then the hole in the abdominal wall in the left lower quadrant for the ostomy was closed at the peritoneal level with 0 Vicryl and then the fascial level with 0 Maxon and the skin was stapled but leaving a gap so that we could wicked open with iodoform. The midline incision is closed in layers using 2 continuous runs of single 0 Maxon suture for the fascia then the subcutaneous layer is irrigated again, reapproximated subdermally with interrupted 3-0 Vicryl, followed by skin yennifer and an island dressing. EBL minimal lap and sponge counts correct wound expectancy was clean- contaminated, IV fluids crystalloid complications none, patient tolerated the procedure well and was returned to the recovery room in satisfactory condition.
[2016-07-20 23:45] VITALS: BP 150/66
[2016-07-21 06:34] VITALS: BP 140/64
--- NOTE | 2016-07-21 08:38 | PN- General Surgery ---
See Addendum Subjective Subjective: No acute overnight event reported. Patient continues to deny chest pain, shortness of breath and difficulty breathing. She denies nausea, hiccuping, belching and vomitting. She is unsure of passing flatus, she feels she may have passed a small amout this am. She is feeling fatigued, states that she was unable to sleep due to diuresing. She denies discomfort to bilateral upper and lower extremities. Objective Vital Signs and I&Os Vital Signs Date Time Temp Pulse Resp B/P Pulse O2 O2 Flow FiO2 Ox Delivery Rate 07/21 0820 99 Nasal 2.0L Cannula 07/21 0634 98.1 95 19 140/64 100 Nasal 2.0L Cannula 07/21 0000 95 Nasal 3.5L Cannula 07/20 2345 97.4 96 19 150/66 96 Nasal 2.0L Cannula 07/20 1652 97 Nasal 3.0L Cannula 07/20 1604 98.1 98 20 136/82 98 Nasal 2.0L Cannula 07/20 1600 Nasal 2.0L Cannula 07/20 1205 96 Nasal 3.0L Cannula 07/20 1000 102 128/60 07/20 0952 97 Nasal 4.0L Cannula 07/20 0944 98.3 102 18 128/60 99 Nasal 6.0L Cannula Intake & Output 07/21 1600 07/21 0800 07/21 0000 07/20 1600 07/20 0800 07/20 0000 Intake Total 600 600 600 600 300 Output Total 1000 2317 869 9262 300 Balance -400 -1325 300 -400 0 Intake, IV 600 600 600 600 300 Intake, Oral 0 0 0 Number 0 0 0 Bowel Movements Output, Urine 1000 3597 717 9499 300 Patient 127 lb Weight Physical Exam: General: Alert and oriented x3, no acute distress Cardiac: RRR, s1s2 Pulmonary: CTA after productive cough Abdomen: Softly distended, incision without erythema, yennifer intact. Dressing dry and intact on colostomy site. Hypo active bowel sound auscultated Extremities: Moves all extremities, distal sensation intact. Skin well perfused. DP pulses palpable. Bilateral calves soft and non-tender. No periphral edema noted. Assessment/Plan Assessment/Plan This is a 76 year old female, POD 4, s/p colostomy reversal. PMH significant for COPD history and CKD -Continue NPO until flatus -Continue NEB tx and pulmonary toilet -IS encouraged -IV fluids at 75/hr -F/U am labs -Continue sqh for dvt ppx -Will discuss with Dr. Dumont Core Measures/Miscellaneous Venous Thromboembolism VTE Risk Factors: Age > 40, Surgery VTE Contraindications: No Contraindications VTE Prophylaxis Ordered Inpt Mech & Pharm VTE Diagnosis: No VTE Type: NONE VTE Confirmed by (Test): NONE Beta Tariq Is Beta Tariq a Home Med? No Antibiotics Is Patient on Antibiotics? Yes If Yes: prophylaxis
--- NOTE | 2016-07-21 10:02 | RADIOLOGY REPORT ---
EXAMINATION: XR CHEST CLINICAL INFORMATION: Follow-up left lower lobe atelectasis. COMPARISON: CXR from 07/20/2016 TECHNIQUE: PA and lateral views of the chest were obtained. FINDINGS: The aeration of the left lower lobe is significantly improved. There is some residual discoid atelectasis and mild, hazy opacity in the left lower lobe. The posterior costophrenic sulci are blunted from trace pleural effusions. Stable enlargement of cardiac silhouette without acute pulmonary edema. The aortoiliac stent graft and right ureteral stent are partially included in the [id number] of the upper abdomen. IMPRESSION: 1. Left lower lobe atelectasis has nearly completely resolved compared to 07/20/2016. 2. Cardiomegaly without acute pulmonary edema. 3. Trace bilateral pleural effusions.
--- NOTE | 2016-07-21 10:21 | PN- Pulmonary ---
Subjective HPI/Critical Care Issues: Much improved Afebrile Did undergo diuresis yesterday Now appears euvolemic Renal functions stable Objective Current Medications: Current Medications Sig/Deena Start time Last Medication Dose Route Stop Time Status Admin Acetaminophen 1,000 MG Q6P PRN 07/17 1445 AC 07/20 IV 1213 Albuterol Sulfate 3 ML EVERY 4 HRS/AWAKE 07/20 1200 AC 07/21 INH 0817 Amlodipine Besylate 10 MG DAILY 07/18 1000 AC 07/20 PO 1000 Budesonide/ 2 PUF BID 07/17 2200 AC 07/20 Formoterol Fumarate INH 2225 Dextrose/Sodium 1,000 ML Q13H 07/17 1700 AC 07/21 Chloride IV 0317 Furosemide 40 MG ONCE ONE 07/20 1445 DC 07/20 IV 07/20 1446 1714 Heparin Sodium 5,000 UNIT Q8 07/17 1400 AC 07/21 (Porcine) SC 0552 Ipratropium [place] 2.5 ML EVERY 4 HRS/AWAKE 07/20 1200 AC 07/21 INH 0817 Morphine Sulfate 2 MG Q2P PRN 07/17 1445 AC 07/21 IV 0152 Ondansetron HCl 4 MG Q6P PRN 07/17 1445 AC IV Pantoprazole Sodium 40 MG DAILY 07/18 1000 AC 07/20 IV 1000 Promethazine HCl 12.5 MG Q6P PRN 07/17 1445 AC IV 07/24 1244 Tiotropium [place] 1 PUF DAILY 07/18 1000 DC 07/20 INH 1001 Vital Signs & I&O Last 24 Hrs of Vitals and I&O: Vital Signs Date Time Temp Pulse Resp B/P Pulse O2 O2 Flow FiO2 Ox Delivery Rate 07/21 0820 99 Nasal 2.0L Cannula 07/21 0634 98.1 95 19 140/64 100 Nasal 2.0L Cannula 07/21 0000 95 Nasal 3.5L Cannula 07/20 2345 97.4 96 19 150/66 96 Nasal 2.0L Cannula 07/20 1652 97 Nasal 3.0L Cannula 07/20 1604 98.1 98 20 136/82 98 Nasal 2.0L Cannula 07/20 1600 Nasal 2.0L Cannula 07/20 1205 96 Nasal 3.0L Cannula Intake & Output 07/21 1600 07/21 0800 07/21 0000 Intake Total 600 600 Output Total 1000 1925 Balance -400 -1325 Intake, IV 600 600 Output, Urine 1000 1924 Impression/Plan Impression/Plan Impression/Plan: Gen: AAOx3 in NAD Cor: S1+S2+ Lungs: mild crackles both sides with no sig wheezing Abd: soft, appropriately tender to palpation, ND, scant BS auscultated. Incision at midline C/D/I with yennifer. No surrounding erythema or drainage noted. Prior colostomy site with packing with creamy drainage noted after backing out packing. No surrounding erythema noted. Ext: no edema or calf tenderness to kaiden lower extremities. IMPRESSION This is a lady with history of COPD still smokes 1 pack a day with moderate obstructive lung disease with ongoing bronchospasm, hypertension, hyperlipidemia , vitamin D deficiency, significant peripheral vascular disease in the past with status post AAA stent placed in 2014, previous adrenal adenoma with status post resection apparently was benign, chronic renal insufficiency with atrophic right kidney, now * S/p open colostomy reversal with hospital course complicated by post operative hypoxia, now improving with incentive spirometry- mostly related to chronic lung disease with sig atx in the left lower lobe, no clear evidence of pna as she has no fever or any purulent sputum. Has mild fluid overload aswell with bilteral crackles. Unlikely PE as she is on heparin and no evidence of pedal edema * SIg copd with no evidence of exacerbation * CKD with mild fluid overload * LLL atx with hypoxia unlikely pna but cannot rule out * PVD, CKD, Hyperpara, Chronic anemia * Ongoing smoking REC * PO lasix today * CT chest without contrast to eval left lower lobe * Augmentin 500 bid * Incentive spirometry * Cont nebs * Wean oxygen * DUOneb tid atc, Hold spiriva for now till dc cont nebs * Ambulate * ONce pt can take po can be dcd home with oxygen if she still needs it (will try to wean oxygen) * Smoking cessation counselling done extensively with the patient
[2016-07-21 13:11] LABS: ABSOLUTE BASOPHIL COUNT 0 /CUMM (0.0-0.2); ABSOLUTE EOSINOPHIL COUNT 0.4 /CUMM (0.0-0.7); ABSOLUTE LYMPH COUNT 1.6 /CUMM (1.2-3.4); ABSOLUTE MONOCYTE COUNT 0.4 /CUMM (0.10-0.60); BASOPHIL % 0.4 % (0.0-2.0); GRANULOCYTE % 76.3 % (42.2-75.2); HEMATOCRIT 35.2 % (37-47); MEAN CORPUSCULAR HGB 30.9 PG (27.0-31.0); MEAN CORPUSCULAR VOLUME 93.6 FL (81.0-99.0); MEAN PLATELET VOLUME 8.6 FL (7.4-10.4); PLATELET COUNT 326 /CUMM (130-400); RED BLOOD CELL CT 3.76 /CUMM (4.20-5.40); WHITE BLOOD CELL COUNT 10.4 /CUMM (4.8-10.8)
--- NOTE | 2016-07-21 13:40 | CT SCAN REPORT ---
EXAMINATION: CT CHEST WITHOUT CONTRAST CLINICAL INFORMATION: Evaluate left lower lobe. COMPARISON: Prior examinations most recent chest 07/21/2016 9:02 AM. TECHNIQUE: Multidetector volumetric CT imaging of the chest was done. Axial MIP volume rendering provided. Sagittal and coronal reformatted images were obtained. DLP: 184 mGy-cm. FINDINGS: LUNGS AND PLEURAL SPACES: There is a small area of pleural opacity at the left base likely reflecting a combination of pleural effusion and consolidation. Consolidation more likely atelectasis than pneumonia. No change compared with chest x-ray performed same day. Minimal opacity at the right costophrenic angle compatible with atelectasis and minimal effusion. Not conspicuous on x-ray. Lungs otherwise clear. CARDIOVASCULAR: There is a small amount of fluid in the pericardial space compatible with a small pericardial effusion increased compared to the CT March 2016. Calcific atherosclerotic changes are noted. The proximal end of an aortic stent noted in the upper abdomen. Pulmonary vasculature unremarkable. LYMPH NODES: Normal. THORACIC INLET: Normal. ESOPHAGUS: Normal. CHEST WALL AND SOFT TISSUES: Normal. UPPER ABDOMEN: Atrophied right kidney. Slight prominence of the partially visualized left collecting system. There is a small amount of free air beneath the diaphragm OSSEOUS STRUCTURES: Multilevel spondylosis of the dorsal spine. IMPRESSION: Minimal left basilar opacity related to a small persistent effusion and some minimal consolidation more likely atelectasis than pneumonia. Persistent minimal consolidation\E\effusion right base. Overall unchanged compared with the x-ray performed same day. Small pericardial effusion slightly increased compared to the CT March 2016. Calcific atherosclerotic disease. Stable atrophic right kidney. Incidental note is made of a small amount of free air below the diaphragm anterior to the liver consistent with the patient's reported recent surgery 07/17/2016 reported to Nisha Garcia by the [facility] medical team at approximately 1:30 PM 07/21/2016
[2016-07-21 16:20] VITALS: BP 120/58
[2016-07-22 00:02] VITALS: BP 128/70
--- NOTE | 2016-07-22 07:26 | PN- General Surgery ---
See Addendum Subjective Subjective: NAEO. Patient without new c/o. Pain well controlled. Tolerating ice chips without n/v. She started passing flatus a couple of hours ago and has counted 5 times passing flatus. No bowel movement yet. OOB and ambulating in hallways. Denies CP/SOB. Asking if she can have her diet advanced. Objective Vital Signs and I&Os Vital Signs Date Time Temp Pulse Resp B/P Pulse O2 O2 Flow FiO2 Ox Delivery Rate 07/22 0002 98.1 88 20 128/70 98 Nasal 2.0L Cannula 07/22 0000 Nasal 3.0L Cannula 07/21 2022 100 Nasal 3.0L Cannula 07/21 1620 97.9 85 20 120/58 100 Nasal 2.0L Cannula 07/21 1600 100 Nasal 3.0L Cannula 07/21 0820 99 Nasal 2.0L Cannula 07/21 0800 96 Nasal 3.0L Cannula Intake & Output 07/22 0800 07/22 0000 07/21 1600 07/21 0800 07/21 0000 07/20 1600 Intake Total 720 600 630 600 600 600 Output Total 675 963 339 8361 1925 500 Balance 45 200 230 -400 -1325 100 Intake, IV 600 600 600 600 600 600 Intake, Oral 120 0 30 0 Number 0 Bowel Movements Output, Urine 675 251 611 9924 1925 500 Patient 127 lb Weight Physical Exam: General: NAD, comfortable, A&Ox3 Chest: NRD, breathing comfortably on 2L NC. RRR. Abdomen: soft, mildy distended. Appropriately TTP. +Bowel sounds x4 quadrants Ext: No calve swelling/TTP, neurovascularly intact bilateral lower extremities Current Medications: Current Medications Sig/Deena Start time Last Medication Dose Route Stop Time Status Admin Acetaminophen 1,000 MG Q6P PRN 07/17 1445 AC 07/20 IV 1213 Albuterol Sulfate 3 ML EVERY 4 HRS/AWAKE 07/20 1200 AC 07/21 INH 2019 Amlodipine Besylate 10 MG DAILY 07/18 1000 AC 07/21 PO 1122 Amoxicillin/ 500 MG BID 07/21 1100 AC 07/21 Clavulanate Potassium PO 2140 Budesonide/ 2 PUF BID 07/17 2200 07/21 Formoterol Fumarate INH 1123 Dextrose/Sodium 1,000 ML Q13H 07/21 1715 AC 01/18 Chloride IV 0527 Dextrose/Sodium 1,000 ML Q13H 07/17 1700 DC 07/21 Chloride IV 1407 Furosemide 20 MG ONCE ONE 07/21 1345 DC 07/21 PO 07/21 1346 1406 Heparin Sodium 5,000 UNIT Q8 07/17 1400 AC 07/22 (Porcine) SC 0527 Ipratropium [place] 2.5 ML EVERY 4 HRS/AWAKE 07/20 1200 AC 07/21 INH 2019 Morphine Sulfate 2 MG Q2P PRN 07/17 1445 AC 07/21 IV 0152 Ondansetron HCl 4 MG Q6P PRN 07/17 1445 AC IV Pantoprazole Sodium 40 MG DAILY 07/18 1000 AC 07/21 IV 1123 Promethazine HCl 12.5 MG Q6P PRN 07/17 1445 AC IV 07/24 1244 Results Last 48 Hours of Labs: Laboratory Tests 07/21 07/20 1157 0845 Blood Gas pH (7.35 - 7.45 PH) 7.35 pCO2 (35 - 45 TORR) 36 pO2 (80 - 100 TORR) 62 L HCO3 (21 - 28 MEQ/L) 20 L ABG O2 Sat (Measured) (>96.0 %) 92.0 L Carboxyhemoglobin (1.5 - 5.0 %) 0.3 L O2 Concentration % 8L O2 Delivery Method 94 Chemistry Sodium (137 - 145 mmol/L) 148 H Potassium (3.5 - 5.1 mmol/L) 3.8 Chloride (98 - 107 mmol/L) 110 H Carbon Dioxide (22 - 30 mmol/L) 25 Anion Gap (5 - 16) 13 BUN (7 - 17 mg/dL) 17 Creatinine (0.5 - 1.0 mg/dL) 2.2 H Estimated GFR (>60 ml/min) 22 L BUN/Creatinine Ratio (7 - 25 %) 7.7 Hematology CBC w Diff NO MAN DIFF REQ WBC (4.8 - 10.8 /CUMM) 10.4 RBC (4.20 - 5.40 /CUMM) 3.76 L Hgb (12.0 - 16.0 G/DL) 11.6 L Hct (37 - 47 %) 35.2 L MCV (81.0 - 99.0 FL) 93.6 MCH (27.0 - 31.0 PG) 30.9 RDW (11.5 - 14.5 %) 15.0 H Plt Count (130 - 400 /CUMM) 326 MPV (7.4 - 10.4 FL) 8.6 Gran % (42.2 - 75.2 %) 76.3 H Lymphocytes % (20.5 - 51.1 %) 15.1 L Monocytes % (1.7 - 9.3 %) 4.2 Eosinophils % (0 - 5 %) 4.0 Basophils % (0.0 - 2.0 %) 0.4 Absolute Granulocytes (1.4 - 6.5 /CUMM) 8.0 H Absolute Lymphocytes (1.2 - 3.4 /CUMM) 1.6 Absolute Monocytes (0.10 - 0.60 /CUMM) 0.4 Absolute Eosinophils (0.0 - 0.7 /CUMM) 0.4 Absolute Basophils (0.0 - 0.2 /CUMM) 0 PUBS MCHC (33.0 - 37.0 G/DL) 33.0 Miscellaneous Phlebotomy Draw Site LEFT RADIAL Assessment/Plan Assessment/Plan 76yo F POD#5 s/p open colostomy reversal. AVSS. Patient progressing well. - Increase to sips of clears. If patient continues to pass flatus and tolerates sips will advance to full liquid diet. - continue pain control - OOB and ambulate - I/O's - continue IVF - f/u a.m. labs, monitor lytes - SC heparin and ALPS for DVT PPx - will d/w attending Core Measures/Miscellaneous Venous Thromboembolism VTE Risk Factors: Age > 40, Surgery VTE Contraindications: No Contraindications VTE Prophylaxis Ordered Inpt Mech & Pharm VTE Diagnosis: No VTE Type: NONE VTE Confirmed by (Test): NONE Beta Tariq Is Beta Tariq a Home Med? No Antibiotics Is Patient on Antibiotics? Yes If Yes: prophylaxis
[2016-07-22 08:01] VITALS: BP 131/80
[2016-07-22 08:21] LABS: ABSOLUTE BASOPHIL COUNT 0 /CUMM (0.0-0.2); ABSOLUTE EOSINOPHIL COUNT 0.5 /CUMM (0.0-0.7); ABSOLUTE GRANULOCYTE CT 6.6 /CUMM (1.4-6.5); ABSOLUTE LYMPH COUNT 1.6 /CUMM (1.2-3.4); ABSOLUTE MONOCYTE COUNT 0.4 /CUMM (0.10-0.60); BASOPHIL % 0.4 % (0.0-2.0); EOSINOPHIL % 5.6 % (0-5); MEAN CORPUSCULAR HGB 31.1 PG (27.0-31.0); MEAN CORPUSCULAR HGB CONC 33.5 G/DL (33.0-37.0); MEAN CORPUSCULAR VOLUME 92.8 FL (81.0-99.0); MEAN PLATELET VOLUME 9.1 FL (7.4-10.4); PLATELET COUNT 320 /CUMM (130-400); RED BLOOD CELL CT 3.56 /CUMM (4.20-5.40); WHITE BLOOD CELL COUNT 9.1 /CUMM (4.8-10.8)
--- NOTE | 2016-07-22 12:51 | PN- Pulmonary ---
Subjective HPI/Critical Care Issues: Doing much better Afebrile Chest CT scan reviewed which shows mild bilateral edema and atelectasis improved No cough no sputum Objective Current Medications: Current Medications Sig/Deena Start time Last Medication Dose Route Stop Time Status Admin Acetaminophen 1,000 MG Q6P PRN 07/17 1445 AC 07/20 IV 1213 Albuterol Sulfate 3 ML BID 07/22 2200 AC INH Albuterol Sulfate 3 ML EVERY 4 HRS/AWAKE 07/20 1200 DC 07/22 INH 0824 Amlodipine Besylate 10 MG DAILY 07/18 1000 AC 07/22 PO 0815 Amoxicillin/ 500 MG BID 07/21 1100 AC 07/22 Clavulanate Potassium PO 0815 Budesonide/ 2 PUF BID 07/17 2200 AC 07/22 Formoterol Fumarate INH 1154 Dextrose/Sodium 1,000 ML Q13H 07/21 1715 DC 07/22 Chloride IV 0527 Dextrose/Sodium 1,000 ML Q13H 07/17 1700 DC 07/21 Chloride IV 1407 Furosemide 20 MG ONCE ONE 07/21 1345 DC 07/21 PO 07/21 1346 1406 Heparin Sodium 5,000 UNIT Q8 07/17 1400 AC 07/22 (Porcine) SC 0527 Ipratropium [place] 2.5 ML BID 07/22 2200 AC INH Ipratropium [place] 2.5 ML EVERY 4 HRS/AWAKE 07/20 1200 DC 07/22 INH 0824 Morphine Sulfate 2 MG Q2P PRN 07/17 1445 AC 07/21 IV 0152 Ondansetron HCl 4 MG Q6P PRN 07/17 1445 AC IV Pantoprazole Sodium 40 MG DAILY 07/18 1000 AC 07/22 IV 0815 Promethazine HCl 12.5 MG Q6P PRN 07/17 1445 AC IV 07/24 1244 Vital Signs & I&O Last 24 Hrs of Vitals and I&O: Vital Signs Date Time Temp Pulse Resp B/P Pulse O2 O2 Flow FiO2 Ox Delivery Rate 07/22 0928 95 Room Air 07/22 0825 98 Nasal 2.0L Cannula 07/22 0815 132/64 07/22 0801 98.8 88 20 131/80 98 Nasal 3.0L Cannula 07/22 0800 95 Room Air 07/22 0002 98.1 88 20 128/70 98 Nasal 2.0L Cannula 07/22 0000 Nasal 3.0L Cannula 07/21 2022 100 Nasal 3.0L Cannula 07/21 1620 97.9 85 20 120/58 100 Nasal 2.0L Cannula 07/21 1600 100 Nasal 3.0L Cannula Intake & Output 07/22 1600 07/22 0800 07/22 0000 Intake Total 720 600 Output Total 675 400 Balance 45 200 Intake, IV 600 600 Intake, Oral 120 0 Output, Urine 675 400 Laboratory Tests 07/22 07/21 0650 1157 Chemistry Sodium (137 - 145 mmol/L) 145 148 H Potassium (3.5 - 5.1 mmol/L) 3.6 3.8 Chloride (98 - 107 mmol/L) 107 110 H Carbon Dioxide (22 - 30 mmol/L) 25 25 Anion Gap (5 - 16) 13 13 BUN (7 - 17 mg/dL) 16 17 Creatinine (0.5 - 1.0 mg/dL) 2.1 H 2.2 H Estimated GFR (>60 ml/min) 23 L 22 L BUN/Creatinine Ratio (7 - 25 %) 7.6 7.7 Hematology CBC w Diff NO MAN DIFF REQ NO MAN DIFF REQ WBC (4.8 - 10.8 /CUMM) 9.1 10.4 RBC (4.20 - 5.40 /CUMM) 3.56 L 3.76 L Hgb (12.0 - 16.0 G/DL) 11.1 L 11.6 L Hct (37 - 47 %) 33.0 L 35.2 L MCV (81.0 - 99.0 FL) 92.8 93.6 MCH (27.0 - 31.0 PG) 31.1 H 30.9 RDW (11.5 - 14.5 %) 15.0 H 15.0 H Plt Count (130 - 400 /CUMM) 320 326 MPV (7.4 - 10.4 FL) 9.1 8.6 Gran % (42.2 - 75.2 %) 72.0 76.3 H Lymphocytes % (20.5 - 51.1 %) 17.9 L 15.1 L Monocytes % (1.7 - 9.3 %) 4.1 4.2 Eosinophils % (0 - 5 %) 5.6 H 4.0 Basophils % (0.0 - 2.0 %) 0.4 0.4 Absolute Granulocytes (1.4 - 6.5 /CUMM) 6.6 H 8.0 H Absolute Lymphocytes (1.2 - 3.4 /CUMM) 1.6 1.6 Absolute Monocytes (0.10 - 0.60 /CUMM) 0.4 0.4 Absolute Eosinophils (0.0 - 0.7 /CUMM) 0.5 0.4 Absolute Basophils (0.0 - 0.2 /CUMM) 0 0 PUBS MCHC (33.0 - 37.0 G/DL) 33.5 33.0 Microbiology Date/Time Procedure - Status Source Growth 07/20 914 Respiratory Culture - COMP LOWER RESP YEAST 07/20 914 Gram Stain - COMP LOWER RESP Impression/Plan Impression/Plan Impression/Plan: Gen: AAOx3 in NAD Cor: S1+S2+ Lungs: mild crackles both sides with no sig wheezing Abd: soft, appropriately tender to palpation, ND, scant BS auscultated. Incision at midline C/D/I with yennifer. No surrounding erythema or drainage noted. Prior colostomy site with packing with creamy drainage noted after backing out packing. No surrounding erythema noted. Ext: no edema or calf tenderness to kaiden lower extremities. IMPRESSION This is a lady with history of COPD still smokes 1 pack a day with moderate obstructive lung disease with ongoing bronchospasm, hypertension, hyperlipidemia , vitamin D deficiency, significant peripheral vascular disease in the past with status post AAA stent placed in 2014, previous adrenal adenoma with status post resection apparently was benign, chronic renal insufficiency with atrophic right kidney, now * S/p open colostomy reversal with hospital course complicated by resolved post operative hypoxia, - mostly related to chronic lung disease with sig atx in the left lower lobe, with resolved mild fluid overload * SIg copd with no evidence of exacerbation * CKD * Resolving LLL atx * PVD, CKD, Hyperpara, Chronic anemia * Ongoing smoking REC * PO lasix today 20 mg * Can discontinue antibiotics * Incentive spirometry * Wean oxygen * DUOneb bid when necessary, start Spiriva * Ambulate * Stable pulmonary mane can be DC'd * Smoking cessation counselling done extensively with the patient Patient needs outpatient follow-up please make sure she has an appointment with me in the future
[2016-07-22 16:13] VITALS: BP 110/60
[2016-07-23] VITALS: BP 142/70
[2016-07-23 07:58] VITALS: BP 130/64
--- NOTE | 2016-07-23 08:47 | PN- General Surgery ---
See Addendum Subjective Subjective: Patient feeling well, pain is under control, no nause and vomitting. Has been tolerating clears. No bm but continues to pass small amounts of flatus. Has been without respiratory difficulty on room air, denies chest pain, shortness of breath and difficulty breathing. Denies discomfort to bilateral upper and lower extremities. Objective Vital Signs and I&Os Vital Signs Date Time Temp Pulse Resp B/P Pulse O2 O2 Flow FiO2 Ox Delivery Rate 07/23 0758 99.3 90 20 130/64 93 Room Air 07/23 0000 Room Air 07/23 0000 98.5 92 20 142/70 93 Room Air 07/22 1613 98.1 90 18 110/60 95 07/22 0928 95 Room Air Intake & Output 07/23 1600 07/23 0800 07/23 0000 07/22 1600 07/22 0800 07/22 0000 Intake Total 110 480 575 720 600 Output Total 675 400 Balance 110 480 575 45 200 Intake, IV 75 600 600 Intake, Oral 110 480 500 120 0 Number 0 Bowel Movements Output, Urine 675 400 Physical Exam: General: Alert and oriented x3, no acute distress Cardiac: RRR, s1s2 Pulmonary: Bilateral lung sounds clear to auscultation. Abdomen: Softly distended, +bs, skin edges well approximated in midline incision, no erythema or drainage. Ostomy closure site with small amount of mucousy drainage, packing inched out, medial side of incision packing removed in its entirety, lateral aspect of incision packing backed out by 1cm. No surrounding erythema. Extremities: Moves all extremites, distal sensation intact. SKin warm and well perfused. DP pulses palpable. Bilateral calves soft and non-tender Assessment/Plan Assessment/Plan This is a 76 year old female, POD 5, s/p reversal colostomy. PMH significant for htn, copd, ckd -OOB to ambulate with PT -Continue current pain regimen -Continue to await bowel function, clears for now, consider advance to fulls today -Continue home meds -Continue augmentin for now per pulmonary -Will discuss with Dr. Dumont Core Measures/Miscellaneous Venous Thromboembolism VTE Risk Factors: Age > 40, Surgery VTE Contraindications: No Contraindications VTE Prophylaxis Ordered Inpt Mech & Pharm VTE Diagnosis: No VTE Type: NONE VTE Confirmed by (Test): NONE Beta Tariq Is Beta Tariq a Home Med? No Antibiotics Is Patient on Antibiotics? Yes If Yes: prophylaxis
--- NOTE | 2016-07-23 13:05 | PN- Pulmonary ---
Subjective HPI/Critical Care Issues: Patient feeling well, pain is under control, no nause and vomitting. Has been tolerating clears. No bm but continues to pass small amounts of flatus. Has been without respiratory difficulty on room air, denies chest pain, shortness of breath and difficulty breathing. Denies discomfort to bilateral upper and lower extremities. Objective Current Medications: Current Medications Sig/Deena Start time Last Medication Dose Route Stop Time Status Admin Acetaminophen 1,000 MG Q6P PRN 07/17 1445 AC 07/20 IV 1213 Albuterol Sulfate 3 ML BID 07/22 2200 AC 07/23 INH 1012 Amlodipine Besylate 10 MG DAILY 07/18 1000 AC 07/23 PO 0908 Amoxicillin/ 500 MG BID 07/21 1100 AC 07/23 Clavulanate Potassium PO 0905 Budesonide/ 2 PUF BID 07/17 2200 AC 07/23 Formoterol Fumarate INH 0906 Heparin Sodium 5,000 UNIT Q8 07/17 1400 AC 07/23 (Porcine) SC 0613 Ipratropium [place] 2.5 ML BID 07/22 2200 AC 07/23 INH 1013 Morphine Sulfate 2 MG Q2P PRN 07/17 1445 AC 07/21 IV 0152 Ondansetron HCl 4 MG Q6P PRN 07/17 1445 AC IV Pantoprazole Sodium 40 MG DAILY 07/18 1000 AC 07/23 IV 0905 Patient Medication 1 ED .STK-MED ONE 07/22 1406 DC Teaching ED 07/22 1407 Promethazine HCl 12.5 MG Q6P PRN 07/17 1445 AC IV 07/24 1244 Vital Signs & I&O Last 24 Hrs of Vitals and I&O: Vital Signs Date Time Temp Pulse Resp B/P Pulse O2 O2 Flow FiO2 Ox Delivery Rate 07/23 1015 94 Room Air Room Air 07/23 0908 91 142/64 07/23 0758 99.3 90 20 130/64 93 Room Air 07/23 0000 Room Air 07/23 0000 98.5 92 20 142/70 93 Room Air 07/22 1613 98.1 90 18 110/60 95 Intake & Output 07/23 1600 07/23 0800 07/23 0000 Intake Total 110 480 Output Total Balance 110 480 Intake, Oral 110 480 Laboratory Tests 07/22 0650 Chemistry Sodium (137 - 145 mmol/L) 145 Potassium (3.5 - 5.1 mmol/L) 3.6 Chloride (98 - 107 mmol/L) 107 Carbon Dioxide (22 - 30 mmol/L) 25 Anion Gap (5 - 16) 13 BUN (7 - 17 mg/dL) 16 Creatinine (0.5 - 1.0 mg/dL) 2.1 H Estimated GFR (>60 ml/min) 23 L BUN/Creatinine Ratio (7 - 25 %) 7.6 Hematology CBC w Diff NO MAN DIFF REQ WBC (4.8 - 10.8 /CUMM) 9.1 RBC (4.20 - 5.40 /CUMM) 3.56 L Hgb (12.0 - 16.0 G/DL) 11.1 L Hct (37 - 47 %) 33.0 L MCV (81.0 - 99.0 FL) 92.8 MCH (27.0 - 31.0 PG) 31.1 H RDW (11.5 - 14.5 %) 15.0 H Plt Count (130 - 400 /CUMM) 320 MPV (7.4 - 10.4 FL) 9.1 Gran % (42.2 - 75.2 %) 72.0 Lymphocytes % (20.5 - 51.1 %) 17.9 L Monocytes % (1.7 - 9.3 %) 4.1 Eosinophils % (0 - 5 %) 5.6 H Basophils % (0.0 - 2.0 %) 0.4 Absolute Granulocytes (1.4 - 6.5 /CUMM) 6.6 H Absolute Lymphocytes (1.2 - 3.4 /CUMM) 1.6 Absolute Monocytes (0.10 - 0.60 /CUMM) 0.4 Absolute Eosinophils (0.0 - 0.7 /CUMM) 0.5 Absolute Basophils (0.0 - 0.2 /CUMM) 0 PUBS MCHC (33.0 - 37.0 G/DL) 33.5 Impression/Plan Impression/Plan Impression/Plan: Gen: AAOx3 in NAD Cor: S1+S2+ Lungs: mild crackles both sides with no sig wheezing Abd: soft, appropriately tender to palpation, ND, scant BS auscultated. Incision at midline C/D/I with yennifer. No surrounding erythema or drainage noted. Prior colostomy site with packing with creamy drainage noted after backing out packing. No surrounding erythema noted. Ext: no edema or calf tenderness to kaiden lower extremities. IMPRESSION This is a lady with history of COPD still smokes 1 pack a day with moderate obstructive lung disease with ongoing bronchospasm, hypertension, hyperlipidemia , vitamin D deficiency, significant peripheral vascular disease in the past with status post AAA stent placed in 2014, previous adrenal adenoma with status post resection apparently was benign, chronic renal insufficiency with atrophic right kidney, now * S/p open colostomy reversal with hospital course complicated by resolved post operative hypoxia, - mostly related to chronic lung disease with sig atx in the left lower lobe, with resolved mild fluid overload * SIg copd with no evidence of exacerbation * CKD * Resolving LLL atx * PVD, CKD, Hyperpara, Chronic anemia * Ongoing smoking REC * Can discontinue antibiotics * Incentive spirometry * DUOneb bid when necessary, * Start Spiriva * Ambulate * Stable pulmonary mane can be DC'd * Smoking cessation counselling done extensively with the patient Patient needs outpatient follow-up please make sure she has an appointment with me in the future
[2016-07-23 16:10] VITALS: BP 126/72
[2016-07-23 23:24] VITALS: BP 132/76
[2016-07-24 06:08] VITALS: BP 140/72
--- NOTE | 2016-07-24 07:21 | PN- General Surgery ---
See Addendum Subjective Subjective: The patient was seen this morning postoperatively day #6. She reports her pain is under adequate control. She is tolerating a liquid diet without nausea and had 2 formed bowel movements yesterday evening. Patient other complaints the current time and denied any chest pain or difficulty breathing. Objective Vital Signs and I&Os Vital Signs Date Time Temp Pulse Resp B/P Pulse O2 O2 Flow FiO2 Ox Delivery Rate 07/24 0608 98.6 83 20 140/72 94 Room Air 07/23 2324 98.4 87 18 132/76 95 Room Air 07/23 1915 95 Room Air 07/23 1610 98.5 92 19 126/72 94 07/23 1015 94 Room Air Room Air 07/23 0908 91 142/64 07/23 0758 99.3 90 20 130/64 93 Room Air Intake & Output 07/24 0800 07/24 0000 07/23 1600 07/23 0800 07/23 0000 07/22 1600 Intake Total 240 240 720 110 480 575 Output Total 300 200 Balance -60 40 720 110 480 575 Intake, IV 75 Intake, Oral 240 240 720 110 480 500 Number 2 1 0 Bowel Movements Output, Urine 300 200 Physical Exam: Gen.: Alert and in obvious distress Skin: Warm and dry Abdomen: Soft and less distended, mild incisional tenderness, bowel sounds positive. Incision is intact and there is a small amount of serous drainage at the inferior aspect to the packing is. Also colostomy site is clean and healing well also with a small amount of serous a drainage on the dressing. Extremities: Bilateral lower extremities are warm without calf tenderness or significant edema. Assessment/Plan Assessment/Plan Assessment: 76-year-old female status post closure of colostomy postoperative day #6. The patient is progressing as expected and her bowel function has returned's postoperatively. She is tolerating a liquid diet without nausea and continues to move her bowels. Plan: Advance to heart healthy diet Daily dry dressing change to surgical site Out of bed and ambulate Continue current pain regiment GI and DVT prophylaxis Follow-up morning laboratory studies Follow-up pulmonary consultation recommendations Possible discharge today or early tomorrow if tolerating diet Core Measures/Miscellaneous Venous Thromboembolism VTE Risk Factors: Age > 40, Surgery VTE Contraindications: No Contraindications VTE Prophylaxis Ordered Inpt Mech & Pharm VTE Diagnosis: No VTE Type: NONE VTE Confirmed by (Test): NONE Beta Tariq Is Beta Tariq a Home Med? No Antibiotics Is Patient on Antibiotics? No
--- NOTE | 2016-07-24 09:50 | PN- Pulmonary ---
Subjective HPI/Critical Care Issues: Subjective: The patient was seen this morning postoperatively day #6. She reports her pain is under adequate control. She is tolerating a liquid diet without nausea and had 2 formed bowel movements yesterday evening. Patient other complaints the current time and denied any chest pain or difficulty breathing. Objective Current Medications: Current Medications Sig/Deena Start time Last Medication Dose Route Stop Time Status Admin Acetaminophen 1,000 MG Q6P PRN 07/17 1445 AC 07/20 IV 1213 Albuterol Sulfate 3 ML BID 07/22 2200 AC 07/24 INH 0936 Amlodipine Besylate 10 MG DAILY 07/18 1000 AC 07/24 PO 0929 Amoxicillin/ 500 MG BID 07/21 1100 DC 07/23 Clavulanate Potassium PO 0905 Budesonide/ 2 PUF BID 07/17 2200 AC 07/24 Formoterol Fumarate INH 0928 Heparin Sodium 5,000 UNIT Q8 07/17 1400 AC 07/24 (Porcine) SC 0547 Ipratropium [place] 2.5 ML BID 07/22 2200 AC 07/24 INH 0932 Morphine Sulfate 2 MG Q2P PRN 07/17 1445 AC 07/21 IV 0152 Ondansetron HCl 4 MG Q6P PRN 07/17 1445 AC IV Pantoprazole Sodium 40 MG DAILY 07/18 1000 AC 07/24 IV 0926 Promethazine HCl 12.5 MG Q6P PRN 07/17 1445 AC IV 07/24 1244 Vital Signs & I&O Last 24 Hrs of Vitals and I&O: Vital Signs Date Time Temp Pulse Resp B/P Pulse O2 O2 Flow FiO2 Ox Delivery Rate 07/24 0938 96 Room Air Room Air 07/24 0929 120/70 07/24 0608 98.6 83 20 140/72 94 Room Air 07/23 2324 98.4 87 18 132/76 95 Room Air 07/23 1915 95 Room Air 07/23 1610 98.5 92 19 126/72 94 07/23 1015 94 Room Air Room Air Intake & Output 07/24 1600 07/24 0800 07/24 0000 Intake Total 240 240 Output Total 100 300 200 Balance -100 -60 40 Intake, Oral 240 240 Number 2 1 Bowel Movements Output, Urine 100 300 200 Impression/Plan Impression/Plan Impression/Plan: Gen: AAOx3 in NAD Cor: S1+S2+ Lungs: mild crackles both sides with no sig wheezing Abd: soft, appropriately tender to palpation, ND, scant BS auscultated. Incision at midline C/D/I with yennifer. No surrounding erythema or drainage noted. Prior colostomy site with packing with creamy drainage noted after backing out packing. No surrounding erythema noted. Ext: no edema or calf tenderness to ka[place] lower extremities. IMPRESSION This is a lady with history of COPD still smokes 1 pack a day with moderate obstructive lung disease with ongoing bronchospasm, hypertension, hyperlipidemia , vitamin D deficiency, significant peripheral vascular disease in the past with status post AAA stent placed in 2014, previous adrenal adenoma with status post resection apparently was benign, chronic renal insufficiency with atrophic right kidney, now * S/p open colostomy reversal with hospital course complicated by resolved post operative hypoxia, - mostly related to chronic lung disease with sig atx in the left lower lobe, with resolved mild fluid overload * SIg copd with no evidence of exacerbation * CKD * Resolving LLL atx * PVD, CKD, Hyperpara, Chronic anemia * Ongoing smoking REC * Incentive spirometry * DUOneb bid when necessary, * Start Spiriva * Ambulate * Stable pulmonary mane can be DC'd * Smoking cessation counselling done extensively with the patient Patient needs outpatient follow-up please make sure she has an appointment with me in the future
[2016-07-24 15:58] VITALS: BP 122/68
[2016-07-24 23:50] VITALS: BP 128/66
[2016-07-25 07:54] VITALS: BP 130/82
[2016-07-25 09:41] VITALS: BP 130/80
--- NOTE | 2016-07-25 09:54 | PN- General Surgery ---
Surgical Brief Attending Note Brief Attending Note: progressing well. ready for discharge. chronic renal failure, stable. encourage oral intake of fluids. packing change once daily via visiting nurse.
--- NOTE | 2016-07-25 10:15 | Surgical Discharge Summary ---
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 Relation not specified for: FH: diabetes mellitus FH: SC (myocardial infarction) Psychosocial History Where Do You Live? Home Who Do You Live With? Spouse Services at Home: Nursing What is Your Primary Language? Urdu Review of Systems: not assessed at d/c Hospital Course Course Attending Physician: LING CLOUD,LOLA . Primary Care Physician: DENNY CLOUD,[facility] Course: Admitted after colostomy reversal. Slow to resolve ileus. Diet initiated after bowel function returned. Diet advanced and discharged to home. Allergies: Coded Allergies: NO KNOWN ALLERGIES (04/10/16) Significant Procedures: Colostomy reversal Disposition Summary Disposition Principal Diagnosis: Colostomy status Additional Diagnosis: none Discharge Disposition: home health services Discharge Instructions General Discharge Information Code Status: Full Code Patient's Diet: low fiber Patient's Activity: no lifting Follow-Up Instructions/Appts: one week for staple removal. Medications at Discharge Discharge Medications: Continue taking these medications: Amlodipine (Norvasc 10MG) 10 MG TAB 1 Tablet ORAL DAILY Comments: Last Taken:04/11/15 Time: DOCUMENTED PER CMR DURING PRE-SX INTERVIEW 0800 Tiotropium [place] (Spiriva) 18 MCG CAP.W.DEV 1 Capsule Inhale through mouth DAILY Instructions: Reason to Stop at ADM: trc neb orders Comments: Last Taken:03/27/16 Time:9AM Aspirin (Ecotrin) 81 MG ECT 1 Tablet ORAL DAILY Comments: Last Taken:04/11/15 Time: DOCUMENTED PER CMR DURING PRE-SX INTERVIEW 0800 Budesonide/Formoterol Fumarate (Symbicort 80-4.5 Mcg Inhaler) (Unknown Strength) HFA.AER.AD 2 PUFF Inhale through mouth DAILY Qty = 10 Instructions: Reason to Stop at ADM: needs trn neb orders Comments: PREVIOUSLY NOTED 2 PUFF BID, DOCUMENTED DURING PRE-SX INTERVIEW 2 PUFF DAILY Last Taken:03/27/16 Time:9AM Copies To: DENNY CLOUD,JESENIA
== END 2016-07-25 11:37 | disposition home health service (06) | DRG 330 ==
LOC: ENRESERVTM → ENRESERV → ENRESERVDT → ENPENDDIS 02:07 → SDA 02:07 → 2NB 02:07
PROVIDERS: Nurse Practitioner; Physician Assistant; Physician Assistant Surgical; ADMIT Surgery
PROC: 0DBE0ZZ Excision of Large Intestine, Open Approach (ICD-10-PCS; principal; 2016-07-17)
DX: Z43.3 Encounter for attention to colostomy (principal); N18.4 Chronic kidney disease, stage 4 (severe); I13.0 Hypertensive heart and chronic kidney disease with heart failure and stage 1 through stage 4 chronic kidney disease, or unspecified chronic kidney disease; J44.9 Chronic obstructive pulmonary disease, unspecified; J98.11 Atelectasis; Z72.0 Tobacco use; I71.4 Abdominal aortic aneurysm, without rupture; E78.5 Hyperlipidemia, unspecified; F17.210 Nicotine dependence, cigarettes, uncomplicated; I73.9 Peripheral vascular disease, unspecified; E21.3 Hyperparathyroidism, unspecified; E55.9 Vitamin D deficiency, unspecified; R09.02 Hypoxemia; D53.9 Nutritional anemia, unspecified
CPT/HCPCS: 2NBSP; 36415; 82436; 87070; 87086; 88304; 93970; 97110-GO; 97116-GO; 97161-GP; 97530-GO; C9399; J0131; J1100; J1644; J1940; J2405; J2550; J3490; J7040; J7042